=== PATIENT | male | born 1945 | race Asian ===

== ENCOUNTER 2018-08-24 01:24 | Inpatient (IN) | payer OTHER ==
[~2018-08-24] VITALS: Ht 170.2 cm; Wt 59.0 kg
--- NOTE | 2018-08-24 01:40 | NUR ---
MILES VALENTIN FROM HOME WITH A C/O DTO. PT IS ON A 5150 HOLD OF 08/23/18 @2330 FOR DTO. PT WAS AGGRESSIVE WITH HIS AND HAS A HX OF ANXIETY, DEPRESSION, PTSD ([place] [facility]). PT WAS DX WITH DEMENTIA 2 YRS AGO.
[2018-08-24 02:02] LABS: APPEARANCE,URINE Clear (CLEAR); BILIRUBIN,URINE Negative (NEGATIVE); BLOOD, URINE Negative Ery/uL (NEGATIVE); COLOR,URINE Yellow (YELLOW); KETONES,URINE Negative (NEGATIVE); LEUKOCYTE ESTERASE ,URINE Negative (NEGATIVE); NITRITE, URINE Negative (NEGATIVE); PROTEIN,URINE Negative (NEGATIVE); UGLUCOSE Negative (NEGATIVE); UROBILINOGEN,URINE 0.2 EU/dL (0.2)
--- NOTE | 2018-08-24 02:05 | NUR ---
LAB DRAW DONE.
[2018-08-24 02:19] LABS: BASOPHILS % (AUTO) 0.7 % (0.0-2.0); EOSINOPHILS % (AUTO) 3.6 % (0.0-6.0); HEMATOCRIT 40 % (39-51); HEMOGLOBIN 13.4 g/dL (13.5-17.5); LYMPHOCYTES # (AUTO) 0.9 /CMM (0.8-4.8); LYMPHOCYTES % (AUTO) 17.4 % (20.0-44.0); MEAN CORPUSCULAR HGB CONC 34 g/dl (31.0-36.0); MEAN CORPUSCULAR VOLUME 92 fL (80-96); MONOCYTES # (AUTO) 0.4 /CMM (0.1-1.30); MONOCYTES % (AUTO) 7.7 % (2.0-12.0); NEUTROPHILS # (AUTO) 3.7 /CMM (1.8-8.9); NEUTROPHILS % (AUTO) 70.6 % (43.0-81.0); PLATELET COUNT (AUTO) 150 /CMM (150-450); RED BLOOD CELL COUNT(AUTO) 4.35 MIL/uL (4.5-6.0); WHITE BLOOD COUNT (AUTO) 5.3 K/uL (4.3-11.0)
[2018-08-24] MEDS ORDERED: ATOR10TA PO (02:24)
[2018-08-24] MEDS ORDERED: ESCI10TA PO (02:24)
[2018-08-24] MEDS ORDERED: CHOL200026 PO (02:24)
[2018-08-24] MEDS ORDERED: ESCI5TAB PO (02:24)
[2018-08-24 02:31] LABS: CALCIUM, SERUM 8.1 mg/dL (8.5-10.1); CARBON DIOXIDE 26 mmol/L (21-32); CHLORIDE 110 mmol/L (98-107); CREATININE 1.4 mg/dL (0.6-1.3); GLUCOSE 136 mg/dL (74-106); POTASSIUM 3.9 mmol/L (3.5-5.1); SODIUM SERUM 144 mmol/L (136-145); UREA NITROGEN, BLOOD 28 mg/dL (7-18)
[2018-08-24] MEDS ORDERED: TOPI50TA24 PO (02:31)
[2018-08-24] MEDS ORDERED: ASPI-605 PO (02:31)
[2018-08-24] MEDS ORDERED: ALPR0.5T8 PO (02:31)
[2018-08-24 02:44] LABS: ALANINE AMINOTRANSFERASE 26 U/L (12-78); ALBUMIN 3.2 g/dL (3.4-5.0); ALKALINE PHOSPHATASE 121 U/L (46-116); ASPARTATE AMINOTRANSFERASE 21 U/L (15-37); BILIRUBIN,DIRECT 0.2 mg/dL (0.0-0.2); BILIRUBIN,TOTAL 0.6 mg/dL (0.2-1.0); TOTAL PROTEIN, SERUM 6.7 g/dL (6.4-8.2)
[2018-08-24 02:45] LABS: ACETAMINOPHEN 0 ug/ml (10-30); ALCOHOL, BLOOD < 3 mg/dL (0-0)
--- NOTE | 2018-08-24 03:24 | NUR ---
CALLING REPORT TO [facility]. PT IS GOING TO [facility] A.
[2018-08-24] MEDS ORDERED: MAG HYDROX/AL HYDROX/SIMETH 30 ML UDC PO PRN (04:30)
[2018-08-24] MEDS ORDERED: LORAZEPAM 0.5 MG TABLET PO PRN (04:30)
[2018-08-24] MEDS ORDERED: MAGNESIUM HYDROXIDE 30 ML UDC PO PRN (04:30)
[2018-08-24] MEDS ORDERED: ACETAMINOPHEN 325 MG TABLET PO PRN (04:30)
[2018-08-24] MEDS ORDERED: LEVE500T9 PO (04:59)
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
--- NOTE | 2018-08-24 06:56 | NUR ---
Spoke with FUR WEIGHER Eda, Re: med recond needs to be done
--- NOTE | 2018-08-24 06:57 | NUR ---
CALLED AND SPOKE WITH PATIENT'S , RE: ADMISSION OF PATIENT TO THE UNIT.
[2018-08-24 08:00] VITALS: BP 148/75
[2018-08-24] MEDS ORDERED: LEVE250T4 PO (08:51)
--- NOTE | 2018-08-24 14:30 | NUR ---
JESUS contacted pts Liza Juarez [phone] whom was unable to communicate with JESUS due to a language barrier. She stated she would have her sister call JESUS to discuss discharge plan.
--- NOTE | 2018-08-24 14:40 | NUR ---
INITIAL DISCHARGE PLAN: Patient wishes to be discharged home [address] [place] [address]. SW will contact pts Liza Juarez [phone] with a [employer] production machine operator to discus pts discharge plan and her safety. JESUS will help form a safe and proper discharge in collaboration with .
[2018-08-24 16:00] VITALS: BP 150/80
[2018-08-24] MEDS: TOPIRAMATE 25 MG TABLET PO SCH (17:17)
[2018-08-24] MEDS: LEVETIRACETAM (250 MG) 250 MG TABLET PO SCH (17:18)
[2018-08-24 20:00] VITALS: BP 156/91
[2018-08-24] MEDS: DIVALPROEX SODIUM 250 MG TABLET.DR PO SCH (20:40)
[2018-08-24] MEDS: ARIPIPRAZOLE 5 MG TABLET PO SCH (21:23)
[2018-08-25 07:14] LABS: BASOPHILS % (AUTO) 0.7 % (0.0-2.0); EOSINOPHILS % (AUTO) 3.1 % (0.0-6.0); HEMATOCRIT 43 % (39-51); HEMOGLOBIN 14.8 g/dL (13.5-17.5); LYMPHOCYTES # (AUTO) 1.2 /CMM (0.8-4.8); LYMPHOCYTES % (AUTO) 20.7 % (20.0-44.0); MEAN CORPUSCULAR HGB CONC 34 g/dl (31.0-36.0); MEAN CORPUSCULAR VOLUME 91 fL (80-96); MONOCYTES # (AUTO) 0.4 /CMM (0.1-1.30); MONOCYTES % (AUTO) 6.7 % (2.0-12.0); NEUTROPHILS % (AUTO) 68.8 % (43.0-81.0); PLATELET COUNT (AUTO) 149 /CMM (150-450); RED BLOOD CELL COUNT(AUTO) 4.78 MIL/uL (4.5-6.0); WHITE BLOOD COUNT (AUTO) 5.9 K/uL (4.3-11.0)
[2018-08-25 07:33] LABS: ALBUMIN 3.5 g/dL (3.4-5.0); BILIRUBIN,TOTAL 0.9 mg/dL (0.2-1.0); CALCIUM, SERUM 8.5 mg/dL (8.5-10.1); CREATININE 1.1 mg/dL (0.6-1.3); POTASSIUM 3.4 mmol/L (3.5-5.1); TOTAL PROTEIN, SERUM 7.5 g/dL (6.4-8.2)
[2018-08-25 07:47] LABS: CHOLESTEROL 100 mg/dL (<200); HDL CHOLESTEROL 34 mg/dL (40-60); LDL 60 mg/dL (0-99); TRIGLYCERIDES 85 mg/dL (30-150)
[2018-08-25 08:00] VITALS: BP 154/94
[2018-08-25] MEDS: ASPIRIN EC 81 MG TABLET.DR PO SCH ×2 (08:42→09:00)
[2018-08-25] MEDS: CHOLECALCIFEROL 1,000 UNIT TABLET (VIT D3) PO SCH (08:42)
[2018-08-25] MEDS: ATORVASTATIN 10 MG TABLET PO SCH ×2 (08:43→09:00)
[2018-08-25] MEDS: TOPIRAMATE 25 MG TABLET PO SCH ×4 (08:43→17:29)
[2018-08-25] MEDS: LEVETIRACETAM (250 MG) 250 MG TABLET PO SCH ×2 (08:43→17:28)
[2018-08-25] MEDS: DIVALPROEX SODIUM 250 MG TABLET.DR PO SCH ×4 (08:43→21:10)
[2018-08-25] MEDS ORDERED: POTASSIUM CHLORIDE 20 MEQ TAB.PRT.SR PO SCH (10:00)
[2018-08-25 16:00] VITALS: BP 141/84
--- NOTE | 2018-08-25 18:00 | NUR ---
out at desk freq.concerned over taxes.pleasant and med compliant,initially in am seemed confused about med regimen,and very reluctant to take meds.
[2018-08-25 20:00] VITALS: BP 150/79
[2018-08-25] MEDS: ARIPIPRAZOLE 5 MG TABLET PO SCH (21:11)
[2018-08-25] MEDS: TEMAZEPAM 7.5 MG CAPSULE PO PRN (21:11)
[2018-08-26 08:00] VITALS: BP 133/76
[2018-08-26] MEDS: ATORVASTATIN 10 MG TABLET PO SCH (08:11)
[2018-08-26] MEDS: CHOLECALCIFEROL 1,000 UNIT TABLET (VIT D3) PO SCH (08:11)
[2018-08-26] MEDS: LEVETIRACETAM (250 MG) 250 MG TABLET PO SCH ×2 (08:11→16:30)
[2018-08-26] MEDS: DIVALPROEX SODIUM 250 MG TABLET.DR PO SCH ×2 (08:12→21:25)
[2018-08-26] MEDS: TOPIRAMATE 25 MG TABLET PO SCH ×2 (08:12→16:30)
[2018-08-26] MEDS: ASPIRIN EC 81 MG TABLET.DR PO SCH (08:13)
[2018-08-26 16:00] VITALS: BP 121/79
[2018-08-26 20:00] VITALS: BP 139/77
[2018-08-26] MEDS: ARIPIPRAZOLE 5 MG TABLET PO SCH (21:26)
[2018-08-27 08:00] VITALS: BP 158/90
[2018-08-27] MEDS: ATORVASTATIN 10 MG TABLET PO SCH (08:04)
[2018-08-27] MEDS: LEVETIRACETAM (250 MG) 250 MG TABLET PO SCH ×2 (08:04→16:11)
[2018-08-27] MEDS: CHOLECALCIFEROL 1,000 UNIT TABLET (VIT D3) PO SCH (08:04)
[2018-08-27] MEDS: TOPIRAMATE 25 MG TABLET PO SCH ×2 (08:04→16:10)
[2018-08-27] MEDS: ASPIRIN EC 81 MG TABLET.DR PO SCH (08:04)
[2018-08-27] MEDS: DIVALPROEX SODIUM 250 MG TABLET.DR PO SCH ×3 (08:04→21:05)
--- NOTE | 2018-08-27 09:19 | NUR ---
UR NOTE: JESUS conducted clinical review with S/W MARIAN Arvizu ASSIGNED REPAIR TABLE OPERATOR [phone] FAX TO [phone] who stated pt has been approved 7 days from 08/24/18-08/31/18 with clinical review due on 08/31/18 if additional days are requested.
[2018-08-27 16:00] VITALS: BP 162/100
--- NOTE | 2018-08-27 16:25 | NUR ---
SUPPORTIVE GROUP THERAPY: Pt declined attendance and stated he did not need to attend a group. Pt is withdrawn ands isolated. Pts mood is labile and confused with congruent affect.
[2018-08-27] MEDS: CLONIDINE HCL 0.1 MG TABLET PO PRN (16:50)
[2018-08-27 17:50] VITALS: BP 139/87
[2018-08-27 20:04] VITALS: BP 129/75
[2018-08-27] MEDS: ARIPIPRAZOLE 5 MG TABLET PO SCH (21:05)
[2018-08-28 08:00] VITALS: BP 134/82
[2018-08-28] MEDS: TOPIRAMATE 25 MG TABLET PO SCH ×2 (10:09→17:29)
[2018-08-28] MEDS: DIVALPROEX SODIUM 250 MG TABLET.DR PO SCH ×3 (10:09→21:09)
[2018-08-28] MEDS: CHOLECALCIFEROL 1,000 UNIT TABLET (VIT D3) PO SCH (10:10)
[2018-08-28] MEDS: ASPIRIN EC 81 MG TABLET.DR PO SCH (10:10)
[2018-08-28] MEDS: LEVETIRACETAM (250 MG) 250 MG TABLET PO SCH ×2 (10:10→17:29)
[2018-08-28] MEDS: ATORVASTATIN 10 MG TABLET PO SCH (10:10)
[2018-08-28] MEDS: AMLODIPINE BESYLATE 2.5 MG TABLET PO SCH (10:11)
[2018-08-28 16:00] VITALS: BP_SYST 128
[2018-08-28 20:21] VITALS: BP 139/79
[2018-08-28] MEDS: ARIPIPRAZOLE 5 MG TABLET PO SCH (21:09)
[2018-08-29 08:00] VITALS: BP 131/79
[2018-08-29] MEDS: ASPIRIN EC 81 MG TABLET.DR PO SCH (08:51)
[2018-08-29] MEDS: LEVETIRACETAM (250 MG) 250 MG TABLET PO SCH ×2 (08:51→17:28)
[2018-08-29] MEDS: CHOLECALCIFEROL 1,000 UNIT TABLET (VIT D3) PO SCH (08:52)
[2018-08-29] MEDS: TOPIRAMATE 25 MG TABLET PO SCH ×2 (08:52→17:28)
[2018-08-29] MEDS: AMLODIPINE BESYLATE 2.5 MG TABLET PO SCH (08:52)
[2018-08-29] MEDS: DIVALPROEX SODIUM 250 MG TABLET.DR PO SCH ×3 (08:52→21:13)
[2018-08-29] MEDS: ATORVASTATIN 10 MG TABLET PO SCH (08:52)
[2018-08-29 16:00] VITALS: BP 156/78
--- NOTE | 2018-08-29 16:24 | NUR ---
SUPPORTIVE GROUP THERAPY: SW prompted participating in group therapy. Pt refused attendance and stated he wanted to stay in his room. Pt is withdrawn and isolated. Pts mood is anxious and confused with congruent affect. Pt has poor social skills and has poor insight and judgement.
--- NOTE | 2018-08-29 17:25 | NUR ---
cooperative,compliant,no acute distress.
[2018-08-29] MEDS: CLONIDINE HCL 0.1 MG TABLET PO PRN (20:46)
[2018-08-29 20:53] VITALS: BP 164/87
[2018-08-29] MEDS: TEMAZEPAM 7.5 MG CAPSULE PO PRN (21:13)
[2018-08-29] MEDS: ARIPIPRAZOLE 5 MG TABLET PO SCH (21:17)
[2018-08-30 08:00] VITALS: BP 117/76
--- NOTE | 2018-08-30 08:00 | NUR ---
PT ALERT AND ORIENTED X3, CALM, QUIET, INTERACTS WHEN ENGAGED, AMBULATES ALONG THE HALLWAY WITH STEADY GAIT.COOPERATIVE, MED COMPLIANT.NO SI/DI NOTED. WILL CONTINUE TO MONITOR Q 15 MINS. TO MAINTAIN SAFETY.
[2018-08-30] MEDS: DIVALPROEX SODIUM 250 MG TABLET.DR PO SCH ×3 (08:48→21:06)
[2018-08-30] MEDS: TOPIRAMATE 25 MG TABLET PO SCH ×2 (08:48→16:27)
[2018-08-30] MEDS: AMLODIPINE BESYLATE 2.5 MG TABLET PO SCH (08:48)
[2018-08-30] MEDS: ASPIRIN EC 81 MG TABLET.DR PO SCH (08:48)
[2018-08-30] MEDS: ATORVASTATIN 10 MG TABLET PO SCH (08:48)
[2018-08-30] MEDS: LEVETIRACETAM (250 MG) 250 MG TABLET PO SCH ×2 (08:48→16:27)
[2018-08-30] MEDS: CHOLECALCIFEROL 1,000 UNIT TABLET (VIT D3) PO SCH (09:22)
--- NOTE | 2018-08-30 13:20 | NUR ---
SW contacted SW contacted pts Liza Juarez [phone] and arranged molded goods spot picker home. stated she would pick pt up at 2:00pm.
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
--- NOTE | 2018-08-30 13:47 | NUR ---
JESUS faxed clinical information to Dr. Gama Nieves MD Address: [address] [place], [place] [address] [facility], [place] [address] for aftercare followup. Pt stated he will schedule an appointment as he needed to coordinate with his job schedule.
--- NOTE | 2018-08-30 13:54 | NUR ---
UR NOTE: JESUS contacted S/W MINRA Arvizu ASSIGNED HUMAN RESOURCES OFFICE MANAGER [phone] FAX TO [phone] to inform her pt is discharging on Monday08/31/18. Mirna stated an aftercare correctional counselor/case manager will be calling on Monday09/03/18 to confirm discharge.
[2018-08-30 16:00] VITALS: BP 145/74
[2018-08-30 20:00] VITALS: BP 136/81
[2018-08-30] MEDS: ARIPIPRAZOLE 5 MG TABLET PO SCH (21:07)
[2018-08-30] MEDS: TEMAZEPAM 7.5 MG CAPSULE PO PRN (21:07)
[2018-08-31 08:00] VITALS: BP 147/82
[2018-08-31] MEDS: ASPIRIN EC 81 MG TABLET.DR PO SCH (08:35)
[2018-08-31] MEDS: TOPIRAMATE 25 MG TABLET PO SCH (08:35)
[2018-08-31] MEDS: CHOLECALCIFEROL 1,000 UNIT TABLET (VIT D3) PO SCH (08:35)
[2018-08-31 08:36] VITALS: BP 147/82
[2018-08-31] MEDS: LEVETIRACETAM (250 MG) 250 MG TABLET PO SCH (08:36)
[2018-08-31] MEDS: AMLODIPINE BESYLATE 2.5 MG TABLET PO SCH (08:36)
[2018-08-31] MEDS: ATORVASTATIN 10 MG TABLET PO SCH (08:37)
[2018-08-31] MEDS: DIVALPROEX SODIUM 250 MG TABLET.DR PO SCH (08:41)
[2018-08-31 09:28] LABS: BASOPHILS % (AUTO) 0.8 % (0.0-2.0); EOSINOPHILS % (AUTO) 2.8 % (0.0-6.0); HEMATOCRIT 48 % (39-51); LYMPHOCYTES # (AUTO) 1.5 /CMM (0.8-4.8); LYMPHOCYTES % (AUTO) 25.3 % (20.0-44.0); MEAN CORPUSCULAR HGB CONC 33 g/dl (31.0-36.0); MEAN CORPUSCULAR VOLUME 92 fL (80-96); MONOCYTES # (AUTO) 0.3 /CMM (0.1-1.30); MONOCYTES % (AUTO) 5.7 % (2.0-12.0); NEUTROPHILS % (AUTO) 65.4 % (43.0-81.0); PLATELET COUNT (AUTO) 166 /CMM (150-450); RED BLOOD CELL COUNT(AUTO) 5.21 MIL/uL (4.5-6.0); WHITE BLOOD COUNT (AUTO) 6.1 K/uL (4.3-11.0)
[2018-08-31 09:34] LABS: CALCIUM, SERUM 9.1 mg/dL (8.5-10.1); CREATININE 1.1 mg/dL (0.6-1.3); MAGNESIUM 2.2 mg/dL (1.8-2.4); PHOSPHORUS 2.7 mg/dL (2.5-4.9); POTASSIUM 3.6 mmol/L (3.5-5.1)
--- NOTE | 2018-08-31 12:43 | NUR ---
GPS RN NOTE: NOTIFIED QC MANAGER AKASH AND DR. ESPINOZA WITH DISCHARGE ORDER NOTED AND CARRIED OUT
--- NOTE | 2018-08-31 14:42 | NUR ---
DISCHARGE PATIENT TO HOME PICKED UP BY , PATIENT IN STABLE CONDITION, DENIES SI/HI/AU/VH, NO SOB, NO ACUTE DISTRESS,BREATHING EVEN AND UNLABORED, NO S/S OF PAIN AND DISCOMFORT. DISCHARGE INSTRUCTION EXPLAINED TO PATIENT AND .
--- NOTE | 2018-08-31 14:52 | NUR ---
PATIENT ESCORTED TO THE LOBBY WITH . DISCHARGED
--- NOTE | 2018-09-03 08:24 | NUR ---
DISCHARGE NOTE: Pt was discharged on Monday08/31/18 at 2:00pm home [address] [place] [address]. pts Liza Juarez [phone] will be picking pt up and transporting home. Pts mood is anxious with congruent affect. Pt denied suicidal/homicidal ideation and denied auditory/visual hallucinations. Pt will schedule a follow up appointment with Psychiatrist: Dr. Gama Nieves MD Address: [address] [place] [address] and Senior Sales Representative: Jossue Sood Address: [address] [place] [address] . The multidisciplinary exitcare form was done, printed, signed, and given to the patient.
== END 2018-08-31 14:54 | disposition home or self-care (01) | DRG 885 ==
LOC: ER 01:34 → GPS 04:00
PROVIDERS: ADMIT Psychiatry & Neurology Psychiatry; ATTEND Student in an Organized Health Care Education/Training Program
DX: F39 Unspecified mood [affective] disorder (principal); N17.0 Acute kidney failure with tubular necrosis; F23 Brief psychotic disorder; E44.1 Mild protein-calorie malnutrition; F03.91 Unspecified dementia, unspecified severity, with behavioral disturbance; E78.5 Hyperlipidemia, unspecified; E86.0 Dehydration; Z68.20 Body mass index [BMI] 20.0-20.9, adult; E87.6 Hypokalemia; G40.909 Epilepsy, unspecified, not intractable, without status epilepticus; F41.9 Anxiety disorder, unspecified; F43.10 Post-traumatic stress disorder, unspecified; Z91.14 Patient's other noncompliance with medication regimen; G47.00 Insomnia, unspecified; F09 Unspecified mental disorder due to known physiological condition; I10 Essential (primary) hypertension
CPT/HCPCS: 36415; 80048-TC; 80053-TC; 80061-TC; 80076-TC; 80305; 81000-TC; 83735-TC; 84100-TC; 85025-TC; 87081-TC; G0480